=== PATIENT | female | born 1975 | race Caucasian/White ===

== ENCOUNTER → 2021-03-26 | Outpatient (CLI) | payer OTHER ==
[2014-11-16 21:50] VITALS: BP 134/80
--- NOTE | 2021-03-26 11:10 | RAD ---
US HEAD/NECK SOFT TISSUE History:Reason: PALPALBE NODULE LT NECK / Spl. Instructions: / History: Comparison: None Technique: Sonographic examination of the left neck soft tissues Findings: Several small lymph nodes within the left neck in the region of the patient's pelvic concern. Largest left lateral neck lymph node measures 2.3 x 0.5 cm. Small submandibular lymph node measures 0.6 x 0. 4 cm. Impression: 1. Small left cervical lymph nodes. Recommend continued clinical follow-up and imaging follow-up if interval growth. Electronically signed by: Nii Pruitt DO (03/26/2021 11:08 AM) [id number]
== END ==
LOC: US 08:50
PROVIDERS: ATTEND Family Medicine
DX: R59.0 Localized enlarged lymph nodes (principal); R09.89 Other specified symptoms and signs involving the circulatory and respiratory systems
CPT/HCPCS: 76536